=== PATIENT | female | born 1990 | race Caucasian/White ===

== ENCOUNTER 2016-08-09 01:37 | Emergency (ER) | payer OTHER ==
[2016-08-09 02:05] VITALS: BP 137/74
[2016-08-09] MEDS ORDERED: FLUCONAZOLE 100 MG TABLET PO ONE (02:10)
--- NOTE | 2016-08-09 02:13 | ER Document Report ---
HPI - HPI Patient complains to provider of: vaginal discharge Pain Level: 4 Context: Patient is a 25 year old female that comes to the ED for chief complaint of vaginal discharge that started yesterday. She states she is on doxycycline for acne, states as a result she gets frequent yeast infections. She states she is sexually active with her partner but just had testing for Pap smear and general testing and states she is negative for any STDs or infection. Patient denies fever, nausea vomiting, abdominal pain, just states that she has irritation of the vaginal area and discharge consistent with yeast infection. Patient is on oral contraceptive, just got off her menstrual cycle. - DERM Skin Color: Normal Past Medical History - General Information source: Patient - Social History Smoking Status: Never Smoker Frequency of alcohol use: None Drug Abuse: None Lives with: Family Family History: Reviewed & Not Pertinent Patient has suicidal ideation: No Patient has homicidal ideation: No - Medical History Medical History: Negative Renal/ Medical History: Denies: Hx Peritoneal Dialysis Surgical Hx: Negative - Immunizations Immunizations up to date: Yes Hx Diphtheria, Pertussis, Tetanus Vaccination: Yes Vertical Provider Document - CONSTITUTIONAL General Appearance: WD/WN, No Apparent Distress - INFECTION CONTROL TRAVEL OUTSIDE OF THE [place] IN LAST 30 DAYS: No - HEENT HEENT: Atraumatic, Normal ENT Exam, Normocephalic - NECK Neck: Normal Inspection - RESPIRATORY Respiratory: Breath Sounds Normal, No Respiratory Distress O2 Sat by Pulse Oximetry: 99 - CARDIOVASCULAR Cardiovascular: Regular Rate, Regular Rhythm - GI/ABDOMEN Gastrointestinal: Abdomen Soft, Abdomen Non-Tender. negative: Abdomen Tender - BACK Back: Normal Inspection - MUSCULOSKELETAL/EXTREMETIES Musculoskeletal/Extremeties: MAEW, FROM, Non-Tender - NEURO Level of Consciousness: Awake, Alert, Appropriate Motor/Sensory: No Motor Deficit, No Sensory Deficit - DERM Integumentary: Warm, Dry, No Rash Course - Re-evaluation Re-evalutation: Patient requesting no workup and treatment of her symptoms. Because of her only symptom is irritation and discharge consistent with yeast infection, on doxycycline, patient will be treated with 150 mg of Diflucan single dose, instructed to follow with primary care and return for any concerning symptoms. Patient states understanding and agreement. - Vital Signs Vital signs: Temp Pulse Resp BP Pulse Ox 98.4 F 65 18 137/74 H 99 08/09/16 02:04 08/09/16 02:04 08/09/16 02:04 08/09/16 02:04 08/09/16 02:04 Discharge - Discharge Clinical Impression: Vaginal discharge Condition: Stable Disposition: HOME, SELF-CARE Additional Instructions: You have been treated for a yeast infection tonight. Follow up with primary care. Return to the ED for concerning or worsening symptoms.
== END 2016-08-09 02:23 | disposition home or self-care (01) ==
LOC: ER 01:37
DX: N89.8 Other specified noninflammatory disorders of vagina (principal); L70.9 Acne, unspecified; Z79.3 Long term (current) use of hormonal contraceptives
CPT/HCPCS: 99283

== ENCOUNTER 2017-02-06 03:31 | Emergency (ER) | payer SELFPAY ==
[2017-02-06] MEDS ORDERED: NORMAL SALINE 1000 ML 1,000 ML IV ONE (03:45)
--- NOTE | 2017-02-06 03:47 | ER Document Report ---
ED General - General Stated Complaint: POSSIBLE ETOH Time Seen by Provider: 02/06/17 03:36 Notes: Patient is a 26-year-old female that comes emergency department by EMS for alcohol intoxication and possibly being given an unknown substance in her drink. She states that she went to several bars and had katie at the first place, beer at the second, and beer at the third. She states that she really did not drink much, she was holding her drink the whole time, she did not eat anything, however she suddenly felt light headed and wiped out. She states she feels sickish at the moment. She denies passing out or hitting her head. On doxycycline for acne, not on any sedating medications. She denies any voluntary recreational drugs. TRAVEL OUTSIDE OF THE [place] IN LAST 30 DAYS: No - Related Data Allergies/Adverse Reactions: No Known Allergies Allergy (Unverified 08/09/16 02:10) Past Medical History - General Information source: Patient - Social History Smoking Status: Never Smoker Frequency of alcohol use: Social Drug Abuse: None Lives with: Friend Family History: Reviewed & Not Pertinent - Medical History Medical History: Negative Renal/ Medical History: Denies: Hx Peritoneal Dialysis Surgical Hx: Negative - Immunizations Immunizations up to date: Yes Hx Diphtheria, Pertussis, Tetanus Vaccination: Yes Review of Systems - Review of Systems Constitutional: No symptoms reported EENT: No symptoms reported Cardiovascular: See HPI Respiratory: No symptoms reported Gastrointestinal: No symptoms reported Genitourinary: No symptoms reported Female Genitourinary: No symptoms reported Musculoskeletal: No symptoms reported Skin: No symptoms reported Hematologic/Lymphatic: No symptoms reported Neurological/Psychological: See HPI Physical Exam - Vital signs Vitals: Temp Pulse Resp BP Pulse Ox 97.8 F 92 18 138/90 H 99 02/06/17 03:36 02/06/17 03:36 02/06/17 03:36 02/06/17 03:36 02/06/17 03:36 Interpretation: Normal - General General appearance: Other - sleepy but arousable and responds to questions appropriately In distress: None - HEENT Head: Normocephalic, Atraumatic Eyes: Normal Conjunctiva: Normal Extraocular movements intact: Yes Eyelashes: Normal Pupils: PERRL Nasal: Normal Mouth/Lips: Normal Mucous membranes: Normal Pharynx: Normal Neck: Normal - Respiratory Respiratory status: No respiratory distress Chest status: Nontender Breath sounds: Normal. No: Decreased air movement, Wheezing Chest palpation: Normal - Cardiovascular Rhythm: Regular. No: Tachycardia Heart sounds: Normal auscultation, S1 appreciated, S2 appreciated Murmur: No - Abdominal Inspection: Normal Distension: No distension Bowel sounds: Normal Tenderness: Nontender. No: Tender, Guarding Organomegaly: No organomegaly - Back Back: Normal, Nontender. No: Tender - Extremities General upper extremity: Normal inspection, Nontender, Normal color, Normal ROM , Normal temperature General lower extremity: Normal inspection, Nontender, Normal color, Normal ROM , Normal temperature, Normal weight bearing. No: Roberto's sign - Neurological Neuro grossly intact: Yes Cognition: Normal Orientation: AAOx4. No: Disoriented to person, Disoriented to place, Disoriented to time, Disoriented to events Candido Coma Scale Eye Opening: To Voice Alden Coma Scale Verbal: Oriented Candido Coma Scale Motor: Obeys Commands Alden Coma Scale Total: 14 Speech: Normal Cranial nerves: Normal Cerebellar coordination: Normal Motor strength normal: LUE, RUE, LLE, RLE Sensory: Normal - Psychological Associated symptoms: Normal affect, Normal mood - Skin Skin Temperature: Warm Skin Moisture: Dry Skin Color: Normal Course - Re-evaluation Re-evalutation: Patient is drowsy, GCS of 14, she responds to voice, she is oriented to person, events, place. She states she feels "sick". She was given Zofran by EMS. Giving IV fluids. Patient placed on monitoring, will check glucose and chemistry, will continue to monitor. On reevaluation patient states she feels much better although she is still drowsy. Patient does not alert enough to leave at this time, will continue to monitor. 02/06/17 06:38 Patient now more alert, states she will be calling a friend for a ride home. She will be waiting for a ride. Discussed workup, followup, return precautions. - Vital Signs Vital signs: Temp Pulse Resp BP Pulse Ox 97.8 F 92 15 110/64 100 02/06/17 03:36 02/06/17 03:36 02/06/17 06:01 02/06/17 06:01 02/06/17 06:01 - Laboratory Result Diagrams: 02/06/17 04:00 Laboratory results interpreted by me: 02/06/17 04:00 Sodium 145.6 H Chloride 108 H Discharge - Discharge Clinical Impression: Nausea, Weakness, Alcohol use Condition: Stable Disposition: HOME, SELF-CARE Additional Instructions: Rest, continue to rehydrate. Follow-up with your primary care provider. Return to the emergency department for any returned or new concerning symptoms, or if something is not right. Forms: Return to Work
[2017-02-06 04:54] LABS: ANION GAP 15 (5-19); BLOOD UREA NITROGEN 12 mg/dL (7-20); CALCIUM 9.2 mg/dL (8.4-10.2); CARBON DIOXIDE 23 mmol/L (22-30); CHLORIDE 108 mmol/L (98-107); CREATININE RESULT 0.62 mg/dL (0.52-1.25); GLUCOSE 108 mg/dL (75-110); POTASSIUM 3.6 mmol/L (3.6-5.0); SODIUM 145.6 mmol/L (137-145)
[2017-02-06 09:11] VITALS: BP 115/81
== END 2017-02-06 09:07 | disposition home or self-care (01) ==
LOC: ER 03:31 → EEVIPCON 03:31 → ER 09:07
DX: R11.0 Nausea (principal); R53.1 Weakness; F10.120 Alcohol abuse with intoxication, uncomplicated
CPT/HCPCS: 36415; 80048; 99284